=== PATIENT | male | born 1990 | race African-American/Black ===

== ENCOUNTER 2019-05-18 03:07 | Emergency (ER) | payer OTHER ==
[~2019-05-18] VITALS: Ht 165.1 cm; Wt 87.1 kg
[2019-05-18] MEDS ORDERED: diphenhdrAMINE HCL 50 MG/1 ML VL IV ONE (04:00)
[2019-05-18] MEDS ORDERED: FAMOTIDINE (10MG/ML) 2ML VL IV ONE (04:00)
[2019-05-18] MEDS ORDERED: methylPREDNISolone SOD SUCC 125 MG/2 ML VL IV ONE (04:00)
[2019-05-18 05:00] VITALS: BP 121/75
[2019-05-18 05:51] LABS: Urine Bacteria NONE SEEN /hpf (None Seen); Urine Blood Negative /uL (Negative); Urine Specific Gravity 1.029 (1.001-1.035); Urine WBC 5 /hpf (0 - 3)
== END 2019-05-18 06:37 | disposition home or self-care (01) ==
LOC: ER 03:09
DX: T78.3XXA Angioneurotic edema, initial encounter (principal); X58.XXXA Exposure to other specified factors, initial encounter
CPT/HCPCS: 81001; 96374; 96375; 99283; J1200; J2930; J3490

== ENCOUNTER 2019-05-25 07:33 | Emergency (ER) | payer OTHER ==
[~2019-05-25] VITALS: Ht 165.1 cm; Wt 93.0 kg
[2019-05-25 07:59] VITALS: BP 131/80
[2019-05-25] MEDS ORDERED: methylPREDNISolone SOD SUCC 125 MG/2 ML VL IM ONE (09:00)
[2019-05-25] MEDS ORDERED: EPINEPHrine HCL 1 MG/1 ML AMP SC ONE (09:00)
== END 2019-05-25 09:26 | disposition home or self-care (01) ==
LOC: ER 07:39
DX: T78.40XA Allergy, unspecified, initial encounter (principal); X58.XXXA Exposure to other specified factors, initial encounter
CPT/HCPCS: 96372; 99283; J0171; J2930